=== PATIENT | female | born 1955 | race African-American/Black ===

== ENCOUNTER 2017-11-28 01:46 | Emergency (ER) | payer OTHER, MEDICAID ==
[~2017-11-28] VITALS: Ht 162.6 cm; Wt 91.0 kg
[2017-11-28] MEDS ORDERED: ACETAMINOPHEN 325MG TABLET PO ONE (05:00)
[2017-11-28 08:32] LABS: CLARITY URINE CLEAR (CLEAR); COLOR URINE YELLOW (YELLOW); KETONES URINE NEGATIVE (NEGATIVE); LEUKOCYTE ESTERASE URINE 1+ (NEGATIVE); NITRITE URINE NEGATIVE (NEGATIVE); OCCULT BLOOD URINE NEGATIVE (NEGATIVE); PH URINE 5.5 (4.5-8.0); PROTEIN URINE NEGATIVE (NEGATIVE)
[2017-11-28] MEDS ORDERED: KETOROLAC 60MG/2ML VIAL IM ONE (09:00)
[2017-11-28 10:44] VITALS: BP 115/62
== END 2017-11-28 10:46 | disposition home or self-care (01) ==
LOC: ER 01:46
DX: M54.5 Low back pain (principal); G89.29 Other chronic pain; N39.0 Urinary tract infection, site not specified; I10 Essential (primary) hypertension; F17.210 Nicotine dependence, cigarettes, uncomplicated; Z88.5 Allergy status to narcotic agent
CPT/HCPCS: 72100; 81003; 96372; 99285; J1885